=== PATIENT | male | born 1955 | race Caucasian/White ===

== ENCOUNTER 2017-05-25 08:44 | Emergency (ER) | payer MEDICARE ==
[~2017-05-25] VITALS: Ht 180.3 cm; Wt 93.4 kg
[~2017-05-25 08:44] MED LIST: ASPIRIN325 MG PO; CALCIUM MAGNES1 EAC2 PO; COZAAR50 MG PO; CYMBALTA60 MG PO; DICLOFENAC SODI50 MG PO; EFFEXOR XR75 MG PO; GUAIATUSSIN AC10 ML PO; HYDROCHLOROTHIA25 MG PO; METOPROLOL TART25 MG PO; PENTOXIFYLLINE400 MG PO; POTASSIUM99 M2 PO; PRAVACHOL80 MG PO; PRILOSEC40 MG PO; SUPER B-50 COM1 EACH
[2017-05-25] MEDS ORDERED: METOPROLOL SUCC25 MG PO (09:03)
== END 2017-05-25 09:22 | disposition home or self-care (01) ==
LOC: ED 08:44
DX: M54.5 Low back pain (principal); Z00.8 Encounter for other general examination

== ENCOUNTER 2020-08-13 22:16 | Emergency (ER) | payer MEDICARE ==
[~2020-08-13] VITALS: Ht 177.8 cm; Wt 86.2 kg
[~2020-08-13 22:16] MED LIST changes: +JANTOVEN4 MG; +JANTOVEN5 MG; +METOPROLOL SUCC25 MG PO; +OMEPRAZOLE20 MG PO; -PRAVACHOL80 MG PO; +PRAVASTATIN SOD80 MG PO; -PRILOSEC40 MG PO
[2020-08-14] MEDS ORDERED: ULTRAM50 MG PO (01:38)
[2020-08-14] MEDS ORDERED: CRUTCH1 EACH MISC (01:40)
== END 2020-08-14 01:50 | disposition home or self-care (01) ==
LOC: ED 22:16
DX: S32.591A Other specified fracture of right pubis, initial encounter for closed fracture (principal); W11.XXXA Fall on and from ladder, initial encounter; I10 Essential (primary) hypertension; Z86.73 Personal history of transient ischemic attack (TIA), and cerebral infarction without residual deficits; F17.200 Nicotine dependence, unspecified, uncomplicated; Z88.5 Allergy status to narcotic agent; Z79.899 Other long term (current) drug therapy; Z79.01 Long term (current) use of anticoagulants
CPT/HCPCS: 72100; 72192; 73000; 73030; 73502; 73700; 99284-25

== ENCOUNTER 2020-08-14 09:33 | Emergency (ER) | payer MEDICARE ==
[~2020-08-14] VITALS: Ht 177.8 cm; Wt 86.2 kg
[~2020-08-14 09:33] MED LIST changes: +CRUTCH1 EACH MISC; +ULTRAM50 MG PO
--- OUTSIDE RECORDS SUMMARY | 2020-08-14 09:36 | XMS ---
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 [place] has no Care Guidelines for this patient. Rajinder VISIT COUNT (12 MO.) [facility] TOTAL 2 NOTE: Visits indicate total known visits. ED/C VISIT TRACKING (12 MO.) 08/14/2020 09:33 [facility] TYPE: Emergency COMPLAINT: - FALL, LOC 08/13/2020 22:17 [facility] [place] TYPE: Emergency COMPLAINT: - FALL INPATIENT VISIT TRACKING (12 MO.) No inpatient visits to display in this time frame [id number]
--- NOTE | 2020-08-15 00:01 | EKG ---
[facility] [address] [place] [address] Signed Sinus rhythm with occasional premature ventricular complexes Otherwise normal ECG No previous ECGs available Confirmed by SEPIDEH TOBIAS MD ([id number] on 08/15/2020 12:01:05 AM Electronically Signed By: SEPIDEH TOBIAS MD 08/15/20 0001 PATIENT NAME: FRANCISCO SANTIAGO JORGE LUIS Electrocardiogram DATE OF : 53 PHYSICIAN: SEPIDEH TOBIAS MD REPORT #: [id number] REPORT IS CONFIDENTIAL AND NOT TO BE RELEASED WITHOUT AUTHORIZATION
== END 2020-08-14 13:17 | disposition home or self-care (01) ==
LOC: ED 09:33
DX: R55 Syncope and collapse (principal); I10 Essential (primary) hypertension; J44.9 Chronic obstructive pulmonary disease, unspecified; F17.200 Nicotine dependence, unspecified, uncomplicated; Z88.5 Allergy status to narcotic agent; Z79.899 Other long term (current) drug therapy; Z79.01 Long term (current) use of anticoagulants
CPT/HCPCS: 70450; 71045; 72192; 80053; 84484; 85025; 85610; 86850; 86900; 86901; 93005; 93010; 96374; 96375; 99285-25; J1170; J2405; J7040